=== PATIENT | male | born 1950 | race African-American/Black ===

== ENCOUNTER 2018-07-16 01:45 | Emergency (ER) | payer MEDICARE, OTHER ==
[~2018-07-16] VITALS: Ht 180.3 cm; Wt 91.0 kg
[2018-07-16] MEDS ORDERED: NITROGLYCERIN 0.4MG TABLET SL SL PRN (02:15)
[2018-07-16] MEDS ORDERED: ASPIRIN 81MG TABLET PO ONE (02:15)
[2018-07-16 03:33] LABS: BASOPHILS % 0.7 % (0.0-2.0); CHLORIDE 107 mEq/L (98-107); EOSINOPHILS % 0.3 % (0.0-5.0); HEMATOCRIT. 39.3 % (42.0-52.0); HEMOGLOBIN. 13.7 g/dL (14.0-18.0); LYMPHOCYTES % 13.8 % (20.0-50.0); MEAN CORPUSCULAR HEMOGLOBIN 30.8 pg (28.0-32.0); MEAN CORPUSCULAR VOLUME 88.7 fL (80.0-94.0); MEAN PLATELET VOLUME 7.8 fl (7.4-10.4); MONOCYTES % 11.6 % (2.0-8.0); NEUTROPHILS % 73.6 % (40.0-76.0); PLATELET 123 x1000/uL (130-400); RED BLOOD CELL COUNT 4.44 mill/uL (4.7-6.1); RED CELL DISTRIBUTION WIDTH 14.9 % (11.6-14.6)
[2018-07-16 05:57] VITALS: BP 135/88
== END 2018-07-16 06:31 | disposition left against medical advice (07) ==
LOC: ER 01:45 → CANBEDREQ 06:56
DX: R07.89 Other chest pain (principal)
CPT/HCPCS: 36415; 71045; 83880; 84484; 93005; 99284

== ENCOUNTER 2018-07-17 10:58 | Emergency (ER) | payer MEDICARE, OTHER ==
[~2018-07-17] VITALS: Ht 180.3 cm; Wt 91.0 kg
[2018-07-17 11:05] VITALS: BP 136/78
== END 2018-07-17 14:58 | disposition home or self-care (01) ==
LOC: ER 10:58
DX: R10.9 Unspecified abdominal pain (principal); R05 Cough
CPT/HCPCS: 71045; 99283

== ENCOUNTER 2024-04-27 13:28 | Emergency (ER) | payer MEDICARE, MEDICAID ==
[~2024-04-27] VITALS: Ht 180.3 cm; Wt 96.0 kg
[2024-04-27 13:53] VITALS: BP 95/74; PULSE 70; RESP 16; TEMP 98; O2SAT 99
== END 2024-04-27 15:52 | disposition left against medical advice (07) ==
LOC: ER 13:43
DX: M25.561 Pain in right knee (principal); Z53.21 Procedure and treatment not carried out due to patient leaving prior to being seen by health care provider